=== PATIENT | male | born 1985 | race Caucasian/White ===

== ENCOUNTER 2017-11-07 06:22 | Emergency (ER) | payer OTHER, SELFPAY ==
[2017-11-07] MEDS ORDERED: Propofol 1,000 MG/100 ML VIAL IV ONE (07:41)
[2017-11-07] MEDS ORDERED: Fentanyl 100 MCG/2 ML VIAL ONE (07:58)
--- NOTE | 2017-11-07 08:20 | RAD ---
RADIOGRAPH LEFT SHOULDER 2 VIEWS: Date: 11/07/17 Time: 0728 hours HISTORY: 32-year-old male with left shoulder pain. COMPARISON: None. FINDINGS: There is anteroinferior dislocation of the humeral head relative to the glenoid. No fracture is ident ified. IMPRESSION: Left anterior shoulder dislocation. POS: [facility]
[2017-11-07] MEDS ORDERED: Sodium Chloride 0.9% 500 ML BAG ONE (10:38)
--- NOTE | 2017-11-07 11:04 | RAD ---
RADIOGRAPH LEFT SHOULDER 3 VIEWS: Date: 11/07/17 Time: 0831 hours HISTORY: 32-year-old male with anterior shoulder dislocation. COMPARISON: 11/07/17 at 0728 hours. FINDINGS: The humeral head is now relocated at the glenoid. No fracture. IMPRESSION: Successful reduction of acute left anterior shoulder dislocation. POS: [facility]
== END 2017-11-07 09:19 | disposition home or self-care (01) ==
LOC: MADERS 06:22
DX: S43.005A Unspecified dislocation of left shoulder joint, initial encounter (principal); F17.210 Nicotine dependence, cigarettes, uncomplicated; X58.XXXA Exposure to other specified factors, initial encounter
CPT/HCPCS: 23650; 96374; 99152; 99153; J2704; J3010; J7050